=== PATIENT | female | born 1965 | race Caucasian/White ===

== ENCOUNTER 2016-09-02 11:46 | Emergency (ER) | payer BC, MEDICARE ==
[2016-09-02] MEDS ORDERED: CLINDAMYCIN HCL 150 MG CAPSULE PO ONE (12:02)
--- NOTE | 2016-09-02 12:05 | ER Document Report ---
ED Extremity Problem, Lower - General Chief Complaint: Foot Pain Stated Complaint: FOOT/LEG PAIN Time seen by provider: 12:02 Mode of Arrival: Ambulatory Information source: Patient TRAVEL OUTSIDE OF THE [place] IN LAST 30 DAYS: No - HPI Patient complains to provider of: Injury, Pain, Swelling Location: Foot, Great Toe Occurred: Other - 2 weeks ago Where: Home Onset/Duration: Gradual Quality of pain: Achy, Fullness Severity: Moderate Context: Fell Recent injury: Yes Exacerbated by: Movement, Walking Relieved by: Nothing Notes: Patient is a 50-year-old female with a history of myotonic muscular dystrophy, she reports a fall at home proximally 2 weeks ago, stating her knees gave out from the underneath her, and she fell on her buttocks with her feet underneath her, over the past 2 weeks she's been having painful swelling in her left great toe, over the past week it has become slightly erythematous as well, she denies any pain or injury elsewhere, although the pain does radiate up to her knee at times, she denies a fever, no drainage, she does follow up with a chemical technician for history of corns - Related Data Allergies/Adverse Reactions: Sulfa (Sulfonamide Antibiotics) Allergy (Severe, Verified 09/02/16 11:54) Hives latex [Latex] Allergy (Intermediate, Verified 09/02/16 11:54) Generalized Itching Past Medical History - General Information source: Patient - Social History Smoking Status: Never Smoker Family History: Reviewed & Not Pertinent Patient has suicidal ideation: No Patient has homicidal ideation: No - Past Medical History Cardiac Medical History: Reports: Hx Hypertension Pulmonary Medical History: Reports: Hx Bronchitis, Hx Pneumonia Denies: Hx Asthma, Hx COPD, Hx Tuberculosis Renal/ Medical History: Denies: Hx Peritoneal Dialysis Malignancy Medical History: Reports: Hx Brain Cancer Musculoskeltal Medical History: Denies Hx Arthritis Past Surgical History: Reports: Hx Gynecologic Surgery - D&C x2, Hx Hysterectomy , Hx Thyroid Surgery - due to cancer, Hx Tonsillectomy - adenoidectomy. Denies : Hx Pacemaker - Immunizations Hx Diphtheria, Pertussis, Tetanus Vaccination: Yes Review of Systems - Review of Systems Constitutional: No symptoms reported EENT: No symptoms reported Cardiovascular: No symptoms reported Respiratory: No symptoms reported Gastrointestinal: No symptoms reported Genitourinary: No symptoms reported Female Genitourinary: No symptoms reported Musculoskeletal: See HPI Skin: See HPI Hematologic/Lymphatic: No symptoms reported Neurological/Psychological: No symptoms reported -: Yes All other systems reviewed and negative Physical Exam - Vital signs Vitals: Temp Pulse Resp BP Pulse Ox 98.7 F 57 L 16 169/84 H 96 09/02/16 11:54 09/02/16 11:54 09/02/16 11:54 09/02/16 11:54 09/02/16 11:54 Interpretation: Hypertensive, Bradycardic - Notes Notes: - General General appearance: Appears well, Alert In distress: None - HEENT Head: Normocephalic, Atraumatic Eyes: Normal Conjunctiva: Normal Extraocular movements intact: Yes Eyelashes: Normal Pupils: PERRL - Respiratory Respiratory status: No respiratory distress - Cardiovascular Rhythm: Regular - Abdominal Inspection: Normal - Back Back: Normal - Extremities General upper extremity: Normal inspection General lower extremity: Left foot with tenderness, mild swelling and erythema to the great toe, sensation and motor is intact, toenail is yellowish, thick, there is overgrowth of dry thick skin to the medial portion of the foot consistent with corns - Neurological Neuro grossly intact: Yes Orientation: AAOx4 [place] Coma Scale Eye Opening: Spontaneous [place] Coma Scale Verbal: Oriented [place] Coma Scale Motor: Obeys Commands [place] Coma Scale Total: 15 - Psychological Associated symptoms: Normal affect, Normal mood - Skin Skin Temperature: Warm Skin Moisture: Dry Skin Color: Normal Course - Vital Signs Vital signs: Temp Pulse Resp BP Pulse Ox 98.7 F 57 L 16 169/84 H 96 09/02/16 11:56 09/02/16 11:56 09/02/16 11:56 09/02/16 11:56 09/02/16 11:56 - Diagnostic Test Radiology reviewed: Image reviewed, Reports reviewed Procedures - Immobilization Left Foot Time completed: 12:31 Pre-Proc Neuro Vasc Exam: Normal Immobilizer type: Post-op shoe, Other - Leonel taping Performed by: PCT Post-Proc Neuro Vasc Exam: Normal Alignment checked and good: Yes Discharge - Discharge Clinical Impression: Cellulitis of great toe Qualifiers: Laterality: left Qualified Code(s): L03.032 - Cellulitis of left toe Fractured great toe Qualifiers: Encounter type: initial encounter Fracture type: closed Phalanx: distal Fracture alignment: nondisplaced Laterality: left Qualified Code(s): S92.425A - Nondisplaced fracture of distal phalanx of left great toe, initial encounter for closed fracture Condition: Stable Disposition: HOME, SELF-CARE Instructions: Cellulitis ([facility]), Fractured Toe ([facility]) Additional Instructions: Follow up with your primary care provider and chemical technician in one to 2 days. Return to the emergency room immediately if symptoms worsen or any additional concerns. Prescriptions: Clindamycin HCl [Cleocin 150 mg Capsule] 450 mg PO Q6 10 Days Hydrocodone/Acetaminophen [Hydrocodon-Acetaminophen 5-325] 1 each PO Q6 #20 tablet Referrals: MARZENA GUTIERREZ DPM [ACTIVE STAFF] - Follow up as needed
[2016-09-02 12:59] VITALS: BP 150/69
== END 2016-09-02 12:56 | disposition home or self-care (01) ==
LOC: ER 11:46
DX: S92.425A Nondisplaced fracture of distal phalanx of left great toe, initial encounter for closed fracture (principal); W19.XXXA Unspecified fall, initial encounter; Y92.009 Unspecified place in unspecified non-institutional (private) residence as the place of occurrence of the external cause; L03.032 Cellulitis of left toe; G71.11 Myotonic muscular dystrophy; I10 Essential (primary) hypertension; Z88.2 Allergy status to sulfonamides; Z91.040 Latex allergy status; Z85.841 Personal history of malignant neoplasm of brain
CPT/HCPCS: 99283

== ENCOUNTER → 2017-01-06 | Outpatient (CLI) | payer BC, MEDICARE ==
--- NOTE | 2017-01-06 19:45 | EKG REPORT ---
SEVERITY:- ABNORMAL ECG - SINUS RHYTHM FIRST DEGREE AV BLOCK LEFT VENTRICULAR HYPERTROPHY : Confirmed by: Jose Howell MD 06-Jan-2017 19:45:32
== END ==
LOC: OD 10:02
PROVIDERS: ATTEND Family Medicine
DX: T88.7XXS Unspecified adverse effect of drug or medicament, sequela (principal)
CPT/HCPCS: 93005; 93010

== ENCOUNTER → 2017-03-11 | Outpatient (CLI) | payer BC, MEDICARE ==
[2017-03-11 15:51] LABS: FREE T3 3.3 pg/mL (2.77-5.27)
[2017-03-11 16:05] LABS: THYROID STIMULATING HORMONE 0.05 uIU/mL (0.47-4.68)
== END ==
LOC: OD 12:46
PROVIDERS: ATTEND Physician Assistant
DX: E03.9 Hypothyroidism, unspecified (principal)
CPT/HCPCS: 36415; 84439; 84443; 84481

== ENCOUNTER 2017-03-12 19:10 | Emergency (ER) | payer BC, MEDICARE ==
[2017-03-12] MEDS ORDERED: LIDOCAINE 4%/TETRACAINE 0.5%/EPI 0.18% 5 ML TOPICAL SOLN TOP ONE (22:10)
--- NOTE | 2017-03-12 22:12 | ER Document Report ---
ED Fall - General Chief Complaint: Fall Stated Complaint: FALL,HEAD INJURY Time Seen by Provider: 03/12/17 21:38 Mode of Arrival: Wheelchair Information source: Patient Notes: 51-year-old female presents to ED after falling while vacuuming this afternoon. She states she hit her head on a piece of wooden elephant statue causing the ear to break off which caused a lacerations to the posterior scalp. Bleeding was controlled. Patient is not on any blood thinners and denies any loss of consciousness or nausea or vomiting. TRAVEL OUTSIDE OF THE [place] IN LAST 30 DAYS: No - HPI Occurred: This afternoon - 4:30 PM Where: Home, Indoors Context: Tripped Associated symptoms: Difficulty walking - Patient always has difficulty walking due to muscular condition that is chronic not due to fall today Location of injury/pain: Head Quality of pain: Sharp - Large laceration to posterior scalp Severity: Moderate Pain Level: 4 - Related data Allergies/Adverse Reactions: Sulfa (Sulfonamide Antibiotics) Allergy (Severe, Verified 03/12/17 19:18) Hives latex [Latex] Allergy (Intermediate, Verified 03/12/17 19:18) Generalized Itching Past Medical History - General Information source: Patient - Social History Smoking Status: Never Smoker Cigarette use (# per day): No Chew tobacco use (# tins/day): No Smoking Education Provided: No Frequency of alcohol use: None Drug Abuse: None Lives with: Family Family History: Arthritis, CAD, CVA, Hyperlipidemia, Hypertension, Malignancy. denies: COPD, Thyroid Disfunction Patient has suicidal ideation: No Patient has homicidal ideation: No - Past Medical History Cardiac Medical History: Reports: Hx Hypertension Pulmonary Medical History: Reports: Hx Bronchitis, Hx Pneumonia Neurological Medical History: Reports: Other - Cancer in her brain Endocrine Medical History: Reports: Other - Thyroid cancer with removal of thyroid Renal/ Medical History: Reports: None Malignancy Medical History: Reports: Hx Brain Cancer, Hx Skin Cancer, Other - Thyroid cancer GI Medical History: Reports: Hx Colonoscopy, Hx Endoscopy, Other - Colitis Musculoskeltal Medical History: Reports Hx Muscular Dystrophy, Reports Hx Musculoskeletal Deformity, Reports Hx Musculoskeletal Trauma Skin Medical History: Reports None Psychiatric Medical History: Reports: None Traumatic Medical History: Reports: Hx Fractures - Thumb Past Surgical History: Reports: Hx Adenoidectomy, Hx Appendectomy, Hx Cholecystectomy, Hx Dilation and Curettage, Hx Hysterectomy, Hx Orthopedic Surgery - Knee surgery and thumb surgery, Hx Thyroid Surgery - due to cancer, Hx Tonsillectomy, Other - Cyst removed from subcutaneous tissue - Immunizations Immunizations up to date: Yes Hx Diphtheria, Pertussis, Tetanus Vaccination: Yes Review of Systems - Review of Systems Constitutional: No symptoms reported EENT: No symptoms reported Cardiovascular: No symptoms reported Respiratory: No symptoms reported Gastrointestinal: No symptoms reported Genitourinary: No symptoms reported Female Genitourinary: No symptoms reported Musculoskeletal: No symptoms reported Skin: Other - Scalp laceration posterior scalp Hematologic/Lymphatic: No symptoms reported Neurological/Psychological: Headaches Physical Exam - Vital signs Vitals: Temp Pulse Resp BP Pulse Ox 98.2 F 71 20 149/89 H 97 03/12/17 19:18 03/12/17 19:18 03/12/17 19:18 03/12/17 19:18 03/12/17 19:18 Interpretation: Normal - General General appearance: Appears well, Alert - HEENT Head: Normocephalic, Atraumatic Eyes: Normal Pupils: PERRL - Respiratory Respiratory status: No respiratory distress Chest status: Nontender Breath sounds: Normal Chest palpation: Normal - Cardiovascular Rhythm: Regular Heart sounds: Normal auscultation Murmur: No - Abdominal Inspection: Normal Distension: No distension Bowel sounds: Normal Tenderness: Nontender Organomegaly: No organomegaly - Back Back: Normal, Nontender - Extremities General upper extremity: Normal inspection, Nontender, Normal color, Normal ROM , Normal temperature General lower extremity: Normal inspection, Nontender, Normal color, Normal ROM , Normal temperature, Normal weight bearing. No: Atif's sign - Neurological Neuro grossly intact: Yes Cognition: Normal Orientation: AAOx4 [place] Coma Scale Eye Opening: Spontaneous [place] Coma Scale Verbal: Oriented [place] Coma Scale Motor: Obeys Commands [place] Coma Scale Total: 15 Speech: Normal Motor strength normal: LUE, RUE, LLE, RLE Sensory: Normal - Psychological Associated symptoms: Normal affect, Normal mood - Skin Skin Temperature: Warm Skin Moisture: Dry Skin Color: Normal Skin irregularity: Laceration - 5 cm Location of irregularity: Scalp Course - Vital Signs Vital signs: Temp Pulse Resp BP Pulse Ox 98.2 F 76 18 143/82 H 98 03/12/17 19:18 03/12/17 23:41 03/12/17 23:41 03/12/17 23:41 03/12/17 23:41 Procedures - Laceration/Wound Repair left posterior scalp Time completed: 23:04 Wound length (cm): 6 Wound's Depth, Shape: Into muscle, Irregular, Contused tissue Laceration pre-procedure: Sterile PPE donned, Shur-Clens applied Anesthetic type: Other Volume Anesthetic (mLs): 5 Wound explored: No foreign body removed, Contaminated Irrigated w/ Saline (mLs): 400 Wound Repaired With: [place] Number of Sutures: 6 Layer Closure?: No Post-procedure wound care: Other - Bacitracin applied Post-procedure NV exam normal: Yes Complications: No Discharge - Discharge Clinical Impression: Fall Qualifiers: Encounter type: initial encounter Qualified Code(s): W19.XXXA - Unspecified fall, initial encounter Occipital scalp laceration Qualifiers: Encounter type: initial encounter Qualified Code(s): S01.01XA - Laceration without foreign body of scalp, initial encounter Condition: Stable Disposition: HOME, SELF-CARE Additional Instructions: Scalp Laceration A scalp laceration requires little care. Dressings are applied only if severe bleeding or a large flap are present. Usually, once the cut is sutured, you can ignore it. Simply comb the hair over top of it to hide the stitches and go about your usual routine. You can shampoo your hair as needed starting tomorrow. If you need to wear a special hat or protective helmet for work, be careful that it doesn't press on the area. If crusting is bothersome, you can soften the crusts with Polysporin ointment, then shampoo. Infection in a scalp laceration is rare. If any signs of infection occur ( swelling, redness, increasing tenderness, red streaks, tender lumps in the neck on the side of the laceration, or fever), see the doctor immediately. Care of Stapled Wounds Your laceration has been stapled to keep the skin edges aligned during healing. The time of staple removal depends on the nature and location of your cut. Please follow the care instructions the doctor has outlined for you and return for further care, according to the schedule you've been given. A special instrument is needed to remove oscar without injuring your skin further, so don't try to take the oscar out yourself. Keep the wound and dressing clean. Unless you were told otherwise, you may shower daily, blotting the wound dry with a clean, unused towel. At other times, If the dressing gets wet or blood soaked, remove it and blot the wound dry, then reapply a new dressing. Unless you were instructed otherwise, dressings should be changed at least daily. If any signs of infection occur (swelling, redness, increasing tenderness, red streaks, tender lumps in the armpit or groin above the laceration, or fever) , see the doctor immediately. SOAP CLEANSING: Gently wash the wound daily using a mild soap (like Ivory, Phisoderm, Neutrogena). Use warm water, rubbing gently until all debris, ooze, and crusting have been washed from the wound. Allow to dry briefly (about 10 minutes) after cleaning. Repeat this cleansing at least three times a day for the first two days and then once or twice a day. ANTIBIOTIC OINTMENT PROTECTION: Your wounds are such that dressing them is not practical or optional. After cleansing, you should apply a thin coating of antibiotic ointment ( Bacitracin, not Neosporin) to the wounds at least three times daily. This lessens infection risk, and may decrease the amount of scarring. Use a q-tip or dull butter knife, not your finger, to apply this ointment. Any debris or ooze which builds up in the ointment should be gently rubbed off with a sterile gauze pad. Harder crusting may need to be gently scrubbed off with a clean wash cloth with soap and warm water, perhaps applying a warm, wet wash cloth to the wound for ten minutes first. Development of redness, severe itching, or blistering may mean allergy to the ointment. See the doctor. TETANUS IMMUNIZATION GIVEN: You have been given an immunization against tetanus. Please record this in your records. In general, a booster is needed only once every 10 years. The tetanus shot protects against tetanus or "lockjaw," which is a complication of certain wound infections (the tetanus shot cannot protect against the actual infection). The immunization site may become warm and red due to local reaction. If this occurs, apply warm compresses and take aspirin or ibuprofen to reduce inflammation and discomfort. Return for evaluation if the reaction becomes severe. ORAL NARCOTIC MEDICATION: You have been given a prescription for pain control. This medication is a narcotic. It's best taken with food, as nausea can result if taken on an empty stomach. Don't operate machinery or drive within six hours of taking this medication. Do not combine this medicine with alcohol, or with any medication which can cause sedation (such as cold tablets or sleeping pills) unless you get permission from the physician. Narcotics tend to cause constipation. If possible, drink plenty of fluids and eat a diet high in fiber and fruits. FOLLOW-UP CARE: Please see your primary doctor in __3___ days for an infection check and dressing change. Your oscar should be removed in __5___ days. To facilitate a timely removal of your oscar, you may return to the Emergency Department at [facility]. You do not need to call for an appointment, but the best time to come in for suture removal is early in the morning. If you have been referred to another physician for follow-up care, call that physicians office for an appointment as you were instructed. If you experience a significant change in your laceration, or if you are concerned there may be an infection (swelling, redness, drainage, increasing tenderness, red streaks, tender lumps in the armpit or groin above the laceration, or fever) , return to the Emergency Department immediately re-evaluation. Forms: Elevated Blood Pressure Referrals: ANDREW ARRIAGA DO [Primary Care Provider] - Follow up as needed
[2017-03-12] MEDS ORDERED: LIDOCAINE 1% INJ-PF (10 MG/ML) 30 ML SDV ONE (22:25)
[2017-03-12] MEDS ORDERED: DIPH/PERTUSS(ACELL)/TETANUS VAC/PF 0.5 ML SYR (>=10YO) IM ONE (23:08)
[2017-03-12 23:42] VITALS: BP 143/82
== END 2017-03-12 23:41 | disposition home or self-care (01) ==
LOC: ER 19:10
PROC: 0HQ0XZZ Repair Scalp Skin, External Approach (ICD-10-PCS; principal; 2017-03-12)
DX: S01.01XA Laceration without foreign body of scalp, initial encounter (principal); W18.09XA Striking against other object with subsequent fall, initial encounter
CPT/HCPCS: 99282; 90471; 90715; 12002; J3490

== ENCOUNTER 2017-03-17 11:48 | Emergency (ER) | payer BC, MEDICARE ==
[2017-03-17 11:54] VITALS: BP 150/82
--- NOTE | 2017-03-17 12:29 | ER Document Report ---
ED Suture/Wound Recheck - General Chief Complaint: Staple Removal Stated Complaint: STAPLE REMOVAL Time Seen by Provider: 03/17/17 12:24 Notes: 51 yo female here for staple removal. 6 oscar placed 5 days ago. TRAVEL OUTSIDE OF THE [place] IN LAST 30 DAYS: No - HPI Context: Injury Symptoms since procedure: No complaints Exacerbated by: Denies Relieved by: Denies - Related Data Allergies/Adverse Reactions: Sulfa (Sulfonamide Antibiotics) Allergy (Severe, Verified 03/17/17 11:53) Hives latex [Latex] Allergy (Intermediate, Verified 03/17/17 11:53) Generalized Itching Past Medical History - General Information source: Patient - Social History Smoking Status: Unknown if Ever Smoked Frequency of alcohol use: None Drug Abuse: None Lives with: Family Family History: Arthritis, CAD, CVA, Hyperlipidemia, Hypertension, Malignancy. denies: COPD, Thyroid Disfunction Patient has suicidal ideation: No Patient has homicidal ideation: No - Past Medical History Cardiac Medical History: Reports: Hx Hypertension Pulmonary Medical History: Reports: Hx Bronchitis, Hx Pneumonia Denies: Hx Asthma, Hx COPD, Hx Tuberculosis Renal/ Medical History: Denies: Hx Peritoneal Dialysis Malignancy Medical History: Reports: Hx Brain Cancer, Hx Skin Cancer GI Medical History: Reports: Hx Colonoscopy, Hx Endoscopy Musculoskeltal Medical History: Denies Hx Arthritis, Reports Hx Muscular Dystrophy, Reports Hx Musculoskeletal Deformity, Reports Hx Musculoskeletal Trauma Traumatic Medical History: Reports: Hx Fractures - Thumb Past Surgical History: Reports: Hx Adenoidectomy, Hx Appendectomy, Hx Cholecystectomy, Hx Dilation and Curettage, Hx Gynecologic Surgery - D&C x2, Hx Hysterectomy, Hx Orthopedic Surgery - Knee surgery and thumb surgery, Hx Thyroid Surgery - due to cancer, Hx Tonsillectomy, Other - Cyst removed from subcutaneous tissue. Denies: Hx Pacemaker - Immunizations Immunizations up to date: Yes Hx Diphtheria, Pertussis, Tetanus Vaccination: Yes Review of Systems - Review of Systems Constitutional: No symptoms reported EENT: No symptoms reported Cardiovascular: No symptoms reported Respiratory: No symptoms reported Gastrointestinal: No symptoms reported Genitourinary: No symptoms reported Female Genitourinary: No symptoms reported Musculoskeletal: No symptoms reported Skin: No symptoms reported Hematologic/Lymphatic: No symptoms reported Neurological/Psychological: No symptoms reported -: Yes All other systems reviewed and negative Physical Exam - Vital signs Vitals: Temp Pulse Resp BP Pulse Ox 98.1 F 74 12 150/82 H 96 03/17/17 11:53 03/17/17 11:53 03/17/17 11:53 03/17/17 11:53 03/17/17 11:53 Interpretation: Normal - General General appearance: Appears well, Alert - HEENT Head: Normocephalic, Atraumatic Eyes: Normal Pupils: PERRL - Respiratory Respiratory status: No respiratory distress Chest status: Nontender Breath sounds: Normal Chest palpation: Normal - Cardiovascular Rhythm: Regular Heart sounds: Normal auscultation Murmur: No - Abdominal Inspection: Normal Distension: No distension Bowel sounds: Normal Tenderness: Nontender Organomegaly: No organomegaly - Back Back: Normal, Nontender - Extremities General upper extremity: Normal inspection, Nontender, Normal color, Normal ROM , Normal temperature General lower extremity: Normal inspection, Nontender, Normal color, Normal ROM , Normal temperature, Normal weight bearing. No: Atif's sign - Neurological Neuro grossly intact: Yes Cognition: Normal Orientation: AAOx4 [place] Coma Scale Eye Opening: Spontaneous [place] Coma Scale Verbal: Oriented [place] Coma Scale Motor: Obeys Commands [place] Coma Scale Total: 15 Speech: Normal Motor strength normal: LUE, RUE, LLE, RLE Sensory: Normal - Psychological Associated symptoms: Normal affect, Normal mood - Skin Skin Temperature: Warm Skin Moisture: Dry Skin Color: Normal Course - Re-evaluation Re-evalutation: 03/17/17 12:27 #6 oscar intact to posterior scalp. edges well approximated. no s/s infection. pt stable for discharge - Vital Signs Vital signs: Temp Pulse Resp BP Pulse Ox 98.1 F 74 12 150/82 H 96 03/17/17 11:53 03/17/17 11:53 03/17/17 11:53 03/17/17 11:53 03/17/17 11:53 Discharge - Discharge Clinical Impression: Removal of oscar Condition: Stable Disposition: HOME, SELF-CARE Instructions: Staple Removal ([facility])
== END 2017-03-17 12:40 | disposition home or self-care (01) ==
LOC: ER 11:48
DX: Z48.02 Encounter for removal of sutures (principal)

== ENCOUNTER 2017-06-01 08:46 | Emergency (ER) | payer BC, MEDICARE ==
--- NOTE | 2017-06-01 10:09 | ER Document Report ---
ED General - General Mode of Arrival: Ambulatory Information source: Patient TRAVEL OUTSIDE OF THE [place] IN LAST 30 DAYS: No - General Chief Complaint: Flu Symptoms Stated Complaint: COUGH Time Seen by Provider: 06/01/17 10:05 Notes: Patient is a 51 year old female presenting to the emergency department complaining of multiple symptoms including cough with various colors of sputum, nausea, cough tussive vomiting, congestion and shortness of breath onset 14 days ago. Patient states she saw her primary care doctor and was prescribed Prednisone, antibiotics and told to take Robitussin. (RITA GANT) - Related Data Allergies/Adverse Reactions: Sulfa (Sulfonamide Antibiotics) Allergy (Severe, Verified 06/01/17 08:49) Hives latex [Latex] Allergy (Intermediate, Verified 06/01/17 08:49) Generalized Itching Past Medical History - General Information source: Patient - Social History Smoking Status: Never Smoker Chew tobacco use (# tins/day): No Frequency of alcohol use: None Drug Abuse: None Family History: Arthritis, CAD, CVA, Hyperlipidemia, Hypertension, Malignancy Patient has suicidal ideation: No Patient has homicidal ideation: No - Past Medical History Cardiac Medical History: Reports: Hx Hypertension Pulmonary Medical History: Reports: Hx Bronchitis, Hx Pneumonia Malignancy Medical History: Reports: Hx Brain Cancer, Hx Skin Cancer GI Medical History: Reports: Hx Colonoscopy, Hx Endoscopy Musculoskeltal Medical History: Reports Hx Muscular Dystrophy, Reports Hx Musculoskeletal Deformity, Reports Hx Musculoskeletal Trauma Traumatic Medical History: Reports: Hx Fractures - Thumb Past Surgical History: Reports: Hx Adenoidectomy, Hx Appendectomy, Hx Cholecystectomy, Hx Dilation and Curettage, Hx Gynecologic Surgery - D&C x2, Hx Hysterectomy, Hx Orthopedic Surgery - Knee surgery and thumb surgery, Hx Thyroid Surgery - due to cancer, Hx Tonsillectomy, Other - Cyst removed from subcutaneous tissue - Immunizations Immunizations up to date: Yes Hx Diphtheria, Pertussis, Tetanus Vaccination: Yes Review of Systems - Review of Systems Constitutional: See HPI, Fever Cardiovascular: No symptoms reported Respiratory: See HPI, Cough, Short of breath Gastrointestinal: See HPI, Abdominal pain, Nausea, Vomiting Genitourinary: No symptoms reported Female Genitourinary: No symptoms reported Musculoskeletal: No symptoms reported Skin: No symptoms reported Hematologic/Lymphatic: No symptoms reported Neurological/Psychological: No symptoms reported -: Yes All other systems reviewed and negative Physical Exam - Vital signs Vitals: Temp Pulse Resp BP Pulse Ox 97.8 F 62 18 148/79 H 100 06/01/17 08:55 06/01/17 08:55 06/01/17 08:55 06/01/17 08:55 06/01/17 08:55 - Notes Notes: GENERAL: Alert, interacts well. No acute distress. HEAD: Normocephalic, atraumatic. EYES: Pupils equal, round, and reactive to light. Extraocular movements intact. ENT: Oral mucosa moist, tongue midline. NECK: Full range of motion. Supple. Trachea midline. LUNGS: Expiratory wheezes. No respiratory distress. HEART: Regular rate and rhythm. No murmurs, gallops, or rubs. EXTREMITIES: Moves all 4 extremities spontaneously. NEUROLOGICAL: Alert and oriented x3. Normal speech. PSYCH: Normal affect, normal mood. SKIN: Warm, dry, normal turgor. No rashes or lesions noted. (RITA GANT) Course - Re-evaluation Re-evalutation: 06/01/17 10:41 Patient well-appearing not tachypnea or hypoxic. Chest x-ray by my interpretation does show mild bilateral interstitial infiltrates versus prominent pulmonary markings. Will change patient's antibiotics to Levaquin and will also provide albuterol puffer and cough syrup with follow-up with her primary care physician in the next 72 hours for reevaluation. I did discuss return precautions with patient. (LIAM GAN) - Vital Signs Vital signs: Temp Pulse Resp BP Pulse Ox 97.8 F 64 20 104/77 95 06/01/17 11:13 06/01/17 11:13 06/01/17 11:13 06/01/17 11:13 06/01/17 11:13 Discharge - Discharge Clinical Impression: Cough, Chest congestion Condition: Good Disposition: HOME, SELF-CARE Additional Instructions: 1)Discontinue your current antibiotic regimen and start the ones provided today. 2)Follow-up with primary care physician in the next 2-3 days for reevaluation or sooner in the emergency department if symptoms are worsening 3)Please use albuterol puffer provided 2 puffs every 4 hours for the next 2 days while awake and then 2 puffs every 4 hours as needed thereafter Prescriptions: Guaifenesin/Dextromethorphan [Cough Syrup] 118 ml PO QHS #1 bottle Guaifenesin/Dextromethorphan [Mucinex Dm ER 600-30 mg Tablet] 1 each PO ASDIR PRN #30 tab.er.12h PRN Reason: Levofloxacin [Levaquin 750 mg Tablet] 750 mg PO DAILY #5 tablet Referrals: ANDREW ARRIAGA DO [Primary Care Provider] - Follow up as needed Scribe Attestation: 06/02/17 23:07 I personally performed the services described documentation, reviewed and edited the documentation which was dictated to describe my presence, and it accurately records my words and actions. (LIAM GAN) Scribe Documentation - Scribe Written by Ravie:: Daniel Mosley, 06/01/2017 10:16 acting as scribe for :: Jorge
--- NOTE | 2017-06-01 10:28 | RADIOLOGY REPORT (SQ) ---
EXAM DESCRIPTION: CHEST PA/LAT COMPLETED DATE/TIME: 06/01/2017 10:16 am REASON FOR STUDY: cough, congestion COMPARISON: June 2013 EXAM PARAMETERS: NUMBER OF VIEWS: two views TECHNIQUE: Digital Frontal and Lateral radiographic views of the chest acquired. RADIATION DOSE: NA LIMITATIONS: none FINDINGS: LUNGS AND PLEURA: No opacities, masses or pneumothorax. No pleural effusion. MEDIASTINUM AND HILAR STRUCTURES: No masses or contour abnormalities. HEART AND VASCULAR STRUCTURES: Heart normal size. No evidence for failure. BONES: No acute findings. HARDWARE: None in the chest. OTHER: No other significant finding. IMPRESSION: NO SIGNIFICANT RADIOGRAPHIC FINDING IN THE CHEST. TECHNICAL DOCUMENTATION: JOB ID: [id number] [employer]- All Rights Reserved
[2017-06-01] MEDS ORDERED: ALBUTEROL SULFATE HFA (90 MCG/PUFF) 200 PUFF/8.5 GM MDI IH ONE (10:47)
[2017-06-01 11:16] VITALS: BP 104/77
== END 2017-06-01 11:16 | disposition home or self-care (01) ==
LOC: ER 08:46
DX: R05 Cough (principal); R09.89 Other specified symptoms and signs involving the circulatory and respiratory systems; R11.2 Nausea with vomiting, unspecified; R09.81 Nasal congestion; R06.02 Shortness of breath
CPT/HCPCS: 99283; 71046; J3490

== ENCOUNTER → 2017-12-10 | Outpatient (CLI) | payer BC, MEDICARE ==
--- NOTE | 2017-12-10 15:42 | WOMENS IMAGING REPORT ---
EXAM DESCRIPTION: BILAT SCREENING MAMMO W/CAD COMPLETED DATE/TIME: 12/10/2017 2:47 pm REASON FOR STUDY: BILATERAL SCREENING MAMMO/Z12.31 Z12.31 ENCNTR SCREEN MAMMOGRAM FOR MALIGNANT COOKIE PLASM OF JULIET COMPARISON: 11/26/2009 and 12/07/2008. TECHNIQUE: Standard craniocaudal and mediolateral oblique views of each breast recorded using digita l acquisition. LIMITATIONS: None. FINDINGS: No masses, calcifications or architectural distortion. No areas of suspicion. Read with the assistance of CAD. .[facility] - R2 Cenova Version 1.3 .[facility] - R2 Cenova Version 1.3 .[facility] - R2 Cenova Version 2.4 .[facility] - R2 Cenova Version 2.4 .[facility] - R2 Managed Care Director Version 9.2 IMPRESSION: NORMAL MAMMOGRAM. BIRADS 1. BREAST DENSITY: b. There are scattered areas of fibroglandular density. BIRAD: 1 NEGATIVE RECOMMENDATION: ROUTINE SCREENING COMMENT: The patient has been notified of the results by letter per MQSA requirements. Additional no tification policies are in place for contacting patient with suspicious or incomplete findings. Quality ID #[id number]: The [employer] recommends an annual screening mammogram for women aged 40 years or over. This facility utilizes a reminder system to ensure that all patients receive reminder letters, and/or direct phone calls for appointments. This includes reminders for routine scr eening mammograms, diagnostic mammograms, or other Breast Imaging Interventions when appropriate. Th is patient will be placed in the appropriate reminder system. The [employer] (ACR) has developed recommendations for screening MRI of the breast s in certain patient populations, to be used in conjunction with mammography. Breast MRI surveillanc e may be appropriate for women with more than 20% lifetime risk of developing breast cancer as deter mined by genetic testing, significant family history of the disease, or history of mantle radiation f or Hodgkins Disease. ACR Practice Guidelines 2008. TECHNICAL DOCUMENTATION: FINDING NUMBER: (1) ASSESSMENT: (1) JOB ID: [id number] [employer]- All Rights Reserved Reading location - IP/workstation name: [email or web address]
== END ==
LOC: WI 14:01
PROVIDERS: ATTEND Family Medicine
DX: Z12.31 Encounter for screening mammogram for malignant neoplasm of breast (principal)
CPT/HCPCS: 77067

== ENCOUNTER 2019-01-28 13:16 | Inpatient (IN) | payer BC, MEDICARE ==
[2019-01-28] MEDS ORDERED: ONDANSETRON HCL INJ/PF 4 MG/2 ML SDV IV ONE (13:51)
[2019-01-28] MEDS ORDERED: IPRATROPIUM/ALBUTEROL 0.5-2.5 MG/3 ML AMPUL NEB ONE (13:51)
--- NOTE | 2019-01-28 13:52 | ER Document Report ---
ED Medical Screen (RME) - General Chief Complaint: Cough Stated Complaint: COUGH Time Seen by Provider: 01/28/19 13:44 Primary Care Provider: ANDREW ARRIAGA DO [Primary Care Provider] - Follow up as needed Information source: Patient Notes: Patient presents complaining of cough for the past week. Patient denies any fever. Patient reports cough is occasionally productive. Patient also com plains of right-sided abdominal pain with nausea and vomiting x3 episodes today. Patient denies any urinary symptoms. hx: Muscular dystrophy, skin cancer, cholecystectomy, appendectomy, thyroid surgery, brain tumor removed, partial hysterectomy I have greeted and performed a rapid initial assessment of this patient. A comprehensive ED assessment and evaluation of the patient, analysis of test r esults and completion of the medical decision making process will be conducted by additional ED providers. TRAVEL OUTSIDE OF THE [place] IN LAST 30 DAYS: No - Related Data Allergies/Adverse Reactions: Sulfa (Sulfonamide Antibiotics) Allergy (Severe, Verified 01/28/19 13:44) Hives latex [Latex] Allergy (Intermediate, Verified 01/28/19 13:44) Generalized Itching Past Medical History - Past Medical History Cardiac Medical History: Reports: Hx Hypertension Pulmonary Medical History: Reports: Hx Bronchitis, Hx Pneumonia Denies: Hx Asthma, Hx COPD, Hx Tuberculosis Renal/ Medical History: Denies: Hx Peritoneal Dialysis Malignancy Medical History: Reports: Hx Brain Cancer, Hx Skin Cancer GI Medical History: Reports: Hx Colonoscopy, Hx Endoscopy Musculoskeltal Medical History: Denies Hx Arthritis, Reports Hx Muscular Dystrophy, Reports Hx Musculoskeletal Deformity, Reports Hx Musculoskeletal Trauma Traumatic Medical History: Reports: Hx Fractures - Thumb Past Surgical History: Reports: Hx Adenoidectomy, Hx Appendectomy, Hx Cholecystectomy, Hx Dilation and Curettage, Hx Gynecologic Surgery - D&C x2, Hx Hysterectomy, Hx Orthopedic Surgery - Knee surgery and thumb surgery, Hx Thyroid Surgery - due to cancer, Hx Tonsillectomy, Other - Cyst removed from subcutaneous tissue. Denies: Hx Pacemaker - Immunizations Immunizations up to date: Yes Hx Diphtheria, Pertussis, Tetanus Vaccination: Yes History of Influenza Vaccine for 01/2017 - 07/2017 Season: Yes Physical Exam - Vital signs Vitals: Temp Pulse Resp BP Pulse Ox 98.7 F 59 L 18 142/75 H 94 01/28/19 13:39 01/28/19 13:39 01/28/19 13:39 01/28/19 13:39 01/28/19 13:39 - Respiratory Respiratory status: No respiratory distress Breath sounds: Nonproductive cough, Rhonchi Course - Vital Signs Vital signs: Temp Pulse Resp BP Pulse Ox 98.7 F 59 L 18 142/75 H 94 01/28/19 13:39 01/28/19 13:39 01/28/19 13:39 01/28/19 13:39 01/28/19 13:39 Doctor's Discharge - Discharge Referrals: ANDREW ARRIAGA DO [Primary Care Provider] - Follow up as needed
--- NOTE | 2019-01-28 14:19 | RADIOLOGY REPORT (SQ) ---
EXAM DESCRIPTION: CHEST 2 VIEWS COMPLETED DATE/TIME: 01/28/2019 2:08 pm REASON FOR STUDY: cough COMPARISON: 06/01/2017 EXAM PARAMETERS: NUMBER OF VIEWS: two views TECHNIQUE: Digital Frontal and Lateral radiographic views of the chest acquired. RADIATION DOSE: NA LIMITATIONS: none FINDINGS: LUNGS AND PLEURA: Low lung volumes. Bibasilar opacities. MEDIASTINUM AND HILAR STRUCTURES: No masses or contour abnormalities. HEART AND VASCULAR STRUCTURES: Heart normal size. No evidence for failure. BONES: No acute findings. HARDWARE: None in the chest. OTHER: No other significant finding. IMPRESSION: Low lung volumes with bibasilar opacities. TECHNICAL DOCUMENTATION: JOB ID: [id number] [employer]- All Rights Reserved Reading location - IP/workstation name: [email or web address]
[2019-01-28 15:14] LABS: ABSOLUTE BASOPHILS # (AUTO) 0.1 10^3/uL (0.0-0.2); ABSOLUTE EOSINOPHILS # (AUTO) 0.3 10^3/uL (0.0-0.6); ABSOLUTE LYMPHOCYTES (AUTO) 2.1 10^3/uL (0.5-4.7); ABSOLUTE MONOCYTES (AUTO) 0.6 10^3/uL (0.1-1.4); ABSOLUTE NEUT (AUTO) 7.2 10^3/uL (1.7-8.2); APPEARANCE,URINE SLIGHTLY-CLOUDY; BASOPHILS % (AUTO) 1.3 % (0-2); BILIRUBIN,URINE NEGATIVE (NEGATIVE); COLOR,URINE YELLOW; GLUCOSE, URINE NEGATIVE (NEGATIVE); HEMOGLOBIN 15.3 g/dL (12.0-15.5); KETONES,URINE NEGATIVE (NEGATIVE); LEUKOCYTE ESTERASE,URINE NEGATIVE (NEGATIVE); LYMPHOCYTES % (AUTO) 20.5 % (13-45); MEAN CORPUSCULAR HEMOGLOBIN 29.8 pg (27.0-33.4); MEAN CORPUSCULAR HGB CONC 33.3 g/dL (32.0-36.0); MEAN CORPUSCULAR VOLUME 89 fl (80-97); MONOCYTES % (AUTO) 5.7 % (3-13); NITRITE,URINE NEGATIVE (NEGATIVE); PLATELET COUNT 257 10^3/uL (150-450); PROTEIN,URINE NEGATIVE (NEGATIVE); RED BLOOD COUNT 5.14 10^6/uL (3.72-5.28); RED CELL DISTRIBUTION WIDTH 14.8 % (11.5-14.0); SEGMENTED NEUTROPHILS % (AUTO) 69.5 % (42-78); TOTAL CELLS COUNTED % (AUTO) 100 %; URINE SPECIFIC GRAVITY 1.008; UROBILINOGEN,URINE NEGATIVE mg/dL (<2.0); WHITE BLOOD COUNT 10.3 10^3/uL (4.0-10.5)
[2019-01-28 15:38] LABS: ALBUMIN 4.3 g/dL (3.5-5.0); ALKALINE PHOSPHATASE 404 U/L (38-126); ANION GAP 9 (5-19); ASPARTATE AMINO TRANSFERASE 130 U/L (14-36); BILIRUBIN,DIRECT 0.3 mg/dL (0.0-0.4); BILIRUBIN,TOTAL 1.5 mg/dL (0.2-1.3); BLOOD UREA NITROGEN 6 mg/dL (7-20); CALCIUM 10.5 mg/dL (8.4-10.2); CARBON DIOXIDE 32 mmol/L (22-30); CHLORIDE 100 mmol/L (98-107); GLUCOSE 110 mg/dL (75-110); POTASSIUM 4.6 mmol/L (3.6-5.0); TOTAL PROTEIN 7.3 g/dL (6.3-8.2)
--- NOTE | 2019-01-28 15:44 | ER Document Report ---
ED Respiratory Problem - General Chief Complaint: Cough Stated Complaint: COUGH Time Seen by Provider: 01/28/19 13:44 Primary Care Provider: ANDREW ARRIAGA DO [Primary Care Provider] - Follow up as needed Notes: RME NOTE: Patient presents complaining of cough for the past week. Patient denies any fever. Patient reports cough is occasionally productive. Patient also complains of right-sided abdominal pain with nausea and vomiting x3 episodes today. Patient denies any urinary symptoms. hx: Muscular dystrophy, skin cancer, cholecystectomy, appendectomy, thyroid surgery, brain tumor removed, partial hysterectomy My HPI: Upon initial arrival to the emergency department around 1330 patient's oxygen saturation was noted to be 94%. She was initially treated by E provider. Upon my assessment I have asked for repeat pulse oxygenation as patient does appear tachypneic and can only speak in short worded sentences without getting dyspneic. Patient's oxygen saturation was noted to be 80% at that time. Patie nt's nailbeds were blue. Oxygen was placed by direct order via nursing staff. Discussed this with charge nurse, Cat, will move the patient's to the main emergency department for continuous cardiac monitoring. Patient denies hospital admissions in the last 3 months. States she was at an urgent care in [place] this morning. States they told her she had a pneumonia and she should present to the emergency room. Patient's denying any abdominal pain to myself. TRAVEL OUTSIDE OF THE [place] IN LAST 30 DAYS: No - Related Data Allergies/Adverse Reactions: Sulfa (Sulfonamide Antibiotics) Allergy (Severe, Verified 01/28/19 13:44) Hives latex [Latex] Allergy (Intermediate, Verified 01/28/19 13:44) Generalized Itching Past Medical History - General Information source: Patient - Social History Smoking Status: Never Smoker Frequency of alcohol use: None Drug Abuse: None Family History: Arthritis, CAD, CVA, Hyperlipidemia, Hypertension, Malignancy Patient has suicidal ideation: No Patient has homicidal ideation: No - Past Medical History Cardiac Medical History: Reports: Hx Hypertension Pulmonary Medical History: Reports: Hx Bronchitis, Hx Pneumonia Denies: Hx Asthma, Hx COPD, Hx Tuberculosis Renal/ Medical History: Denies: Hx Peritoneal Dialysis Malignancy Medical History: Reports: Hx Brain Cancer, Hx Skin Cancer GI Medical History: Reports: Hx Colonoscopy, Hx Endoscopy Musculoskeletal Medical History: Denies Hx Arthritis, Reports Hx Muscular Dystrophy, Reports Hx Musculoskeletal Deformity, Reports Hx Musculoskeletal T rauma Traumatic Medical History: Reports: Hx Fractures - Thumb Past Surgical History: Reports: Hx Adenoidectomy, Hx Appendectomy, Hx Cholecystectomy, Hx Dilation and Curettage, Hx Gynecologic Surgery - D&C x2, Hx Hysterectomy, Hx Orthopedic Surgery - Knee surgery and thumb surgery, Hx Thyroid Surgery - due to cancer, Hx Tonsillectomy, Other - Cyst removed from subcutaneous tissue. Denies: Hx Pacemaker - Immunizations Immunizations up to date: Yes Hx Diphtheria, Pertussis, Tetanus Vaccination: Yes Review of Systems - Review of Systems Constitutional: denies: Fever EENT: See HPI Cardiovascular: See HPI Respiratory: See HPI Gastrointestinal: No symptoms reported Genitourinary: No symptoms reported Female Genitourinary: No symptoms reported Musculoskeletal: No symptoms reported Skin: No symptoms reported Hematologic/Lymphatic: No symptoms reported Neurological/Psychological: No symptoms reported Physical Exam - Vital signs Vitals: Temp Pulse Resp BP Pulse Ox 98.7 F 59 L 18 142/75 H 94 01/28/19 13:39 01/28/19 13:39 01/28/19 13:39 01/28/19 13:39 01/28/19 13:39 - Notes Notes: GENERAL: Alert, interacts well. general tachypnea noted HEAD: Normocephalic, atraumatic. EYES: Pupils equal, round, and reactive to light. Extraocular movements intact. ENT: Oral mucosa moist, tongue midline. NECK: Full range of motion. Supple. Trachea midline. LUNGS: Diminished to auscultation apices, no discernible wheezes, rhonchi heard bilateral bases. HEART: Regular rate and rhythm. No murmur ABDOMEN: Soft, non-tender. Non-distended. Bowel sounds present in all 4 quadrants. EXTREMITIES: Moves all 4 extremities spontaneously. No edema, normal radial and dorsalis pedis pulses bilaterally. No cyanosis. BACK: no cervical, thoracic, lumbar midline tenderness. No saddle anesthesia, normal distal neurovascular exam. NEUROLOGICAL: Alert and oriented x3. Normal speech. cranial nerves II through XII grossly intact PSYCH: Normal affect, normal mood. SKIN: cool, dry, normal turgor. No rashes or lesions noted. Course - Re-evaluation Re-evalutation: 01/28/19 15:45 Upon my initial assessment it does appear that patient is tachypneic and hypoxic. Patient placed on oxygen and transferred to the main emergency department for continuous cardiac monitoring. Patient has not been admitted into the hospital in the last 3 months. Did start ceftriaxone and azithromycin. Upon repeat evaluation patient's oxygen saturation noted to be 98% on 4 L/min. Patient placed on 2 L/min via nasal cannula. Patient's oxygen saturation stays around 95%. Patient voices breathing treatment given to her in the emergency department did not help. States she feels "so much better" now on oxygen. 01/28/19 16:28 I discussed this case with Dr. Mann. He states he will come to the emergency department to evaluate the patient at bedside. - Vital Signs Vital signs: Temp Pulse Resp BP Pulse Ox 98.7 F 59 L 18 142/75 H 89 L 01/28/19 13:39 01/28/19 13:39 01/28/19 13:39 01/28/19 13:39 01/28/19 17:00 - Laboratory Result Diagrams: 01/28/19 14:50 01/28/19 14:50 Laboratory results interpreted by me: 01/28/19 01/28/19 01/28/19 14:50 14:50 14:50 RDW 14.8 H Carbon Dioxide 32 H BUN 6 L Creatinine 0.38 L Calcium 10.5 H Total Bilirubin 1.5 H AST 130 H Alkaline Phosphatase 404 H Urine Ascorbic Acid 40 H Discharge - Discharge Clinical Impression: Hypoxia Community acquired pneumonia Qualifiers: Laterality: unspecified laterality Qualified Code(s): J18.9 - Pneumonia, unspecified organism Condition: Fair Disposition: ADMITTED INPATIENT Admitting Provider: Mackenzie (Hospitalist) Unit Admitted: Telemetry Referrals: ANDREW ARRIAGA DO [Primary Care Provider] - Follow up as needed
[2019-01-28] MEDS ORDERED: CEFTRIAXONE 1 GM/D5W RTU 1 GM/50 ML RTUPB IV ONE (15:49)
[2019-01-28] MEDS ORDERED: AZITHROMYCIN INJ 500 MG VIAL IV ONE (15:50)
[2019-01-28] MEDS ORDERED: IPRATROPIUM/ALBUTEROL 0.5-2.5 MG/3 ML AMPUL NEB PRN (17:06)
[2019-01-28] MEDS ORDERED: ACETAMINOPHEN 325 MG TABLET PO PRN (17:06)
--- NOTE | 2019-01-28 17:20 | PDOC H&P ---
History of Present Illness Admission Date/PCP: ANDREW ARRIAGA DO History of Present Illness: JESUS GEORGE is a 53 year old female with a history of muscular dystrophy and thyroid cancer status post thyroidectomy on chronic hormone replacement who presented to an urgent care center with a one-week history of cough. She denies fever. The cough has been productive but her cough is not very strong. She denies shortness of breath. Apparently did a chest x-ray at the urgent care [facility] and sent her over to the ER telling her they thought she had a pneumonia. The chest x-ray here shows possible bibasilar infiltrates. She was not visibly short of breath but at one point they checked her oxygen on room air and it was in the 80s. They put her on oxygen per nasal cannula. She says she was diagnosed with muscular dystrophy 12 or 13 years ago but has never had a pneumonia vaccine nor has she ever seen a school manager. We are admitting her because of her community-acquired pneumonia complicated by her perceived pulmonary weakness due to her muscular dystrophy. Past Medical History Cardiac Medical History: Reports: Hypertension Pulmonary Medical History: Reports: Bronchitis, Pneumonia Denies: Asthma, Chronic Obstructive Pulmonary Disease (COPD), Tuberculosis Malignancy Medical History: Reports: Brain Cancer, Skin Cancer Musculoskeltal Medical History: Denies: Arthritis Hematology: Denies: Anemia Past Surgical History Past Surgical History: Reports: Adenoidectomy, Appendectomy, Cholecystectomy, Hysterectomy, Orthopedic Surgery - Knee surgery and thumb surgery, Tonsillectomy, Other - Cyst removed from subcutaneous tissue Denies: Pacemaker Social History Smoking Status: Never Smoker Frequency of Alcohol Use: None Hx Recreational Drug Use: No Hx Prescription Drug Abuse: No Family History Family History: Arthritis, CAD, CVA, Hyperlipidemia, Hypertension, Malignancy Parental Family History Reviewed: Yes Children Family History Reviewed: Yes Sibling(s) Family History Reviewed.: Yes Medication/Allergy Home Medications: Hydrochlorothiazide 12.5 mg PO DAILY 07/16/11 Losartan Potassium 50 mg PO DAILY 07/16/11 Esomeprazole Magnesium [Nexium] 40 mg PO QPM 02/13/13 Levothyroxine Sodium [Synthroid 0.025 mg Tablet] 0.5 mcg PO DAILY 02/13/13 Multivitamin [Multi-Vitamin Daily] 1 each PO QPM 02/13/13 [place]-3S/Dha/Epa/Fish Oil/D3 [Fish Oil-Vit D3 Softgel] 1,200 intlu PO DAILY 02/13/13 Vitamin B Complex [B Complex] 1 each PO DAILY 02/13/13 Oxycodone HCl/Acetaminophen [Percocet 5-325 mg Tablet] 1 tab PO Q4HP PRN #30 tablet 06/12/13 Hydrocodone/Acetaminophen [[place] 5-325 mg Tablet] 1 tab PO QID #15 tablet 11/18/13 Nitrofurantoin/Nitrofuran Mac [Macrobid 100 mg Capsule] 100 mg PO BID #10 capsule 09/21/14 Oxycodone HCl [Oxycodone HCl 10 MG Tablet] 1 - 2 tab PO Q6H PRN #15 tablet 09/21/14 Clindamycin HCl [Cleocin 150 mg Capsule] 450 mg PO Q6 10 Days capsule 09/02/16 Hydrocodone/Acetaminophen [Hydrocodon-Acetaminophen 5-325] 1 each PO Q6 #20 tablet 09/02/16 Guaifenesin/Dextromethorphan [Cough Syrup] 118 ml PO QHS #1 bottle 06/01/17 Guaifenesin/Dextromethorphan [Mucinex Dm ER 600-30 mg Tablet] 1 each PO ASDIR PRN #30 tab.er.12h 06/01/17 Levofloxacin [Levaquin 750 mg Tablet] 750 mg PO DAILY #5 tablet 06/01/17 Allergies/Adverse Reactions: Sulfa (Sulfonamide Antibiotics) Allergy (Severe, Verified 01/28/19 13:44) Hives latex [Latex] Allergy (Intermediate, Verified 01/28/19 13:44) Generalized Itching Review of Systems All systems: reviewed and no additional remarkable complaints except as stated - All systems were reviewed and were negative except as noted in the HPI Physical Exam Vital Signs: Temp Pulse Resp BP Pulse Ox 98.7 F 59 L 18 142/75 H 89 L 01/28/19 13:39 01/28/19 13:39 01/28/19 13:39 01/28/19 13:39 01/28/19 17:00 Intake & Output 01/27/19 01/28/19 01/29/19 06:59 06:59 06:59 Weight 87.1 kg General appearance: PRESENT: no acute distress, cooperative, disheveled, obese Head exam: PRESENT: atraumatic, normocephalic Eye exam: PRESENT: EOMI, PERRLA. ABSENT: conjunctival injection, nystagmus, scleral icterus Ear exam: PRESENT: normal external ear exam Mouth exam: PRESENT: moist, neck supple Teeth exam: PRESENT: poor dentation Throat exam: ABSENT: post pharyngeal erythema Neck exam: PRESENT: full ROM. ABSENT: carotid bruit, JVD, lymphadenopathy, meningismus, tenderness, thyromegaly Respiratory exam: PRESENT: clear to auscultation yao - Breath sounds were coa rse, symmetrical, unlabored. ABSENT: accessory muscle use, chest wall tenderness, crackles, prolonged expiratory phas, rhonchi, tachypnea, wheezes Cardiovascular exam: PRESENT: RRR - She does get tachycardic when she coughs, +S1, +S2 Pulses: ABSENT: normal carotid pulses Vascular exam: ABSENT: normal capillary refill GI/Abdominal exam: PRESENT: normal bowel sounds, soft. ABSENT: distended, guard ing, rebound, tenderness Extremities exam: ABSENT: clubbing, pedal edema Musculoskeletal exam: PRESENT: normal inspection. ABSENT: deformity Neurological exam: PRESENT: alert, awake, oriented to person, oriented to place, oriented to time, oriented to situation, CN II-XII grossly intact. ABSENT: motor sensory deficit - Her speech was not slurred but it was a little bit dysarthric which she says is chronic for her from her muscular dystrophy Psychiatric exam: PRESENT: appropriate affect, normal mood Skin exam: PRESENT: dry, warm Results Laboratory Results: 01/28/19 14:50 01/28/19 14:50 01/28/19 01/28/19 01/28/19 14:50 14:50 14:50 WBC 10.3 RBC 5.14 Hgb 15.3 Hct 46.0 MCV 89 MCH 29.8 MCHC 33.3 RDW 14.8 H Plt Count 257 Seg Neutrophils % 69.5 Sodium 141.3 Potassium 4.6 Chloride 100 Carbon Dioxide 32 H Anion Gap 9 BUN 6 L Creatinine 0.38 L Est GFR ( Amer) > 60 Glucose 110 Calcium 10.5 H Total Bilirubin 1.5 H AST 130 H Alkaline Phosphatase 404 H Total Protein 7.3 Albumin 4.3 Lipase 27.9 Urine Color YELLOW Urine Appearance SLIGHTLY-CLOUDY Urine pH 5.0 Ur Specific [place] 1.008 Urine Protein NEGATIVE Urine Glucose (UA) NEGATIVE Urine Ketones NEGATIVE Urine Blood NEGATIVE Urine Nitrite NEGATIVE Ur Leukocyte Esterase NEGATIVE Urine WBC (Auto) 1 Urine RBC (Auto) 0 Impressions: Chest X-Ray 01/28/19 13:50 IMPRESSION: Low lung volumes with bibasilar opacities. Assessment and Plan - Diagnosis (1) Community acquired pneumonia Qualifiers: Laterality: unspecified laterality Qualified Code(s): J18.9 - Pneumonia, unspecified organism Is this a current diagnosis for this admission?: Yes Plan: The pneumonia is bibasilar. She is on Rocephin and Zithromax. Blood cultures are pending. Aggressive pulmonary toilet. (2) Hypoxia Is this a current diagnosis for this admission?: Yes Plan: I suspect that were it not for her muscular dystrophy that this would not be much of an issue. I think she has a little bit of baseline respiratory muscle weakness. Her cough is not very strong. We will give her some Mucinex and recommend aggressive pulmonary toilet. We will make sure that she has nebulizer treatments if needed. (3) History of muscular dystrophy Is this a current diagnosis for this admission?: Yes Plan: We will make sure that she gets a pneumonia vaccine prior to discharge. Also recommended that when she is over this, she should get a flu shot. We will try to arrange for her to have follow-up with a school manager as an outpatient. - Time Time Spent with patient: 35 or more minutes - Inpatient Certification Based on my medical assessment, after consideration of the patient's c omorbidities, presenting symptoms, or acuity I expect that the services needed warrant INPATIENT care.: Yes I certify that my determination is in accordance with my understanding of Medicare's requirements for reasonable and necessary INPATIENT services [42 CFR 412.3e].: Yes Medical Necessity: Significant Comorbidiites Make Outpatient Treatment Too Risky, Need Close Monitoring Due to Risk of Patient Decompensation, Need For Continuous Telemetry Monitoring, Need for IV Antibiotics
[2019-01-28] MEDS: GUAIFENESIN SYRP 200 MG/10 ML UDC PO PRN (20:57)
[2019-01-28] MEDS: GUAIFENESIN 600 MG TABLET.SA PO SCH (21:16)
[2019-01-28] MEDS: HEPARIN SOD (PORCINE) 5,000 UNIT/ML 1 ML VIAL SUBCUT SCH (21:17)
[2019-01-29 05:05] LABS: HEMATOCRIT 43.7 % (36.0-47.0); HEMOGLOBIN 14.2 g/dL (12.0-15.5); MEAN CORPUSCULAR HEMOGLOBIN 29.5 pg (27.0-33.4); MEAN CORPUSCULAR HGB CONC 32.4 g/dL (32.0-36.0); MEAN CORPUSCULAR VOLUME 91 fl (80-97); PLATELET COUNT 194 10^3/uL (150-450); RED CELL DISTRIBUTION WIDTH 14.5 % (11.5-14.0); WHITE BLOOD COUNT 8.8 10^3/uL (4.0-10.5)
[2019-01-29 05:35] LABS: ANION GAP 7 (5-19); BLOOD UREA NITROGEN 8 mg/dL (7-20); CALCIUM 10.1 mg/dL (8.4-10.2); CARBON DIOXIDE 35 mmol/L (22-30); CHLORIDE 100 mmol/L (98-107); GLUCOSE 138 mg/dL (75-110); POTASSIUM 4.3 mmol/L (3.6-5.0)
[2019-01-29] MEDS: HEPARIN SOD (PORCINE) 5,000 UNIT/ML 1 ML VIAL SUBCUT SCH ×3 (05:45→21:55)
[2019-01-29] MEDS: GUAIFENESIN SYRP 200 MG/10 ML UDC PO PRN ×2 (05:45→21:57)
[2019-01-29] MEDS: LEVOTHYROXINE SODIUM 0.15 MG TABLET PO SCH (07:46)
[2019-01-29] MEDS: DIPHENOXYLATE HCL/ATROP SULF 2.5-0.025 MG TABLET PO SCH (07:46)
[2019-01-29] MEDS ORDERED: LEVOTHYROXINE SODIUM 0.025 MG TABLET PO SCH (08:00)
[2019-01-29] MEDS ORDERED: (PENDING PHARMACY ID) (Cetirizine Hcl [Zyrtec] 10 MG) PO SCH (08:00)
[2019-01-29] MEDS: LORATADINE 10 MG TABLET PO SCH (09:31)
[2019-01-29] MEDS: GUAIFENESIN 600 MG TABLET.SA PO SCH ×2 (09:31→21:55)
[2019-01-29] MEDS: AZITHROMYCIN 250 MG TABLET PO SCH (09:31)
[2019-01-29] MEDS: CEFTRIAXONE 1 GM/D5W RTU 1 GM/50 ML RTUPB IV SCH (09:34)
--- NOTE | 2019-01-29 17:18 | PDOC PROGRESS REPORT ---
Subjective Progress Note for:: 01/29/19 Subjective:: No adverse events overnight. No new complaints. She still got cough and is having trouble clearing the secretions. She is been afebrile. Reason For Visit: COMMUNITY ACQUIRED PNEUMONIA,HYPOXIA Physical Exam Vital Signs: Temp Pulse Resp BP Pulse Ox 98.3 F 76 19 112/72 94 01/29/19 13:00 01/29/19 14:00 01/29/19 13:00 01/29/19 13:00 01/29/19 13:00 Intake & Output 01/28/19 01/29/19 01/30/19 06:59 06:59 06:59 Intake Total 310 487 Balance 310 487 Weight 88.4 kg General appearance: PRESENT: no acute distress, cooperative, disheveled, obese Respiratory exam: PRESENT: symmetrical, unlabored, other - Coarse breath sounds. ABSENT: accessory muscle use, chest wall tenderness, crackles, prolonged expiratory phas, rhonchi, tachypnea, wheezes Cardiovascular exam: PRESENT: RRR, +S1, +S2 Pulses: PRESENT: normal carotid pulses Vascular exam: PRESENT: normal capillary refill GI/Abdominal exam: PRESENT: normal bowel sounds, soft. ABSENT: distended, guarding, rebound, tenderness Extremities exam: ABSENT: clubbing, pedal edema Musculoskeletal exam: PRESENT: normal inspection. ABSENT: deformity Neurological exam: PRESENT: alert, awake, oriented to person, oriented to place, oriented to situation Psychiatric exam: PRESENT: flat affect Skin exam: PRESENT: dry, warm Results Laboratory Results: 01/29/19 04:33 01/29/19 04:33 01/28/19 01/29/19 01/29/19 16:49 04:33 04:33 WBC 8.8 RBC 4.80 Hgb 14.2 Hct 43.7 MCV 91 MCH 29.5 MCHC 32.4 RDW 14.5 H Plt Count 194 Sodium 141.7 Potassium 4.3 Chloride 100 Carbon Dioxide 35 H Anion Gap 7 BUN 8 Creatinine 0.45 L Est GFR ( Amer) > 60 Glucose 138 H Lactic Acid 1.2 Calcium 10.1 Impressions: Chest X-Ray 01/28/19 13:50 IMPRESSION: Low lung volumes with bibasilar opacities. Assessment and Plan - Diagnosis (1) Community acquired pneumonia Qualifiers: Laterality: unspecified laterality Qualified Code(s): J18.9 - Pneumonia, unspecified organism Is this a current diagnosis for this admission?: Yes Plan: We will continue with her current antibiotics. Cultures are negative thus far. (2) Hypoxia Is this a current diagnosis for this admission?: Yes Plan: Continue supplemental O2. Aggressive pulmonary toilet. Have ordered chest PT and flutter valve (3) History of muscular dystrophy Is this a current diagnosis for this admission?: Yes Plan: We will make sure that she gets a pneumonia vaccine prior to discharge. Also recommended that when she is over this, she should get a flu shot. We will try to arrange for her to have follow-up with a plant protection officer as an outpatient. - Time Time Spent with patient: 15-24 minutes
--- NOTE | 2019-01-30 00:50 | EKG REPORT ---
SEVERITY:- ABNORMAL ECG - SINUS RHYTHM LEFT VENTRICULAR HYPERTROPHY PROLONGED QT INTERVAL : Confirmed by: Michelle Combs 30-Jan-2019 00:49:58
[2019-01-30 05:31] LABS: HEMATOCRIT 42.9 % (36.0-47.0); HEMOGLOBIN 13.9 g/dL (12.0-15.5); MEAN CORPUSCULAR HEMOGLOBIN 29.2 pg (27.0-33.4); MEAN CORPUSCULAR HGB CONC 32.4 g/dL (32.0-36.0); MEAN CORPUSCULAR VOLUME 90 fl (80-97); PLATELET COUNT 181 10^3/uL (150-450); RED BLOOD COUNT 4.75 10^6/uL (3.72-5.28); RED CELL DISTRIBUTION WIDTH 14.4 % (11.5-14.0); WHITE BLOOD COUNT 7.4 10^3/uL (4.0-10.5)
[2019-01-30 05:44] LABS: BLOOD UREA NITROGEN 9 mg/dL (7-20); CHLORIDE 99 mmol/L (98-107); GLUCOSE 125 mg/dL (75-110); POTASSIUM 3.9 mmol/L (3.6-5.0)
[2019-01-30 05:50] LABS: ANION GAP 5 (5-19); CARBON DIOXIDE 39 mmol/L (22-30)
[2019-01-30] MEDS: HEPARIN SOD (PORCINE) 5,000 UNIT/ML 1 ML VIAL SUBCUT SCH ×2 (06:04→13:12)
[2019-01-30] MEDS: LEVOTHYROXINE SODIUM 0.15 MG TABLET PO SCH (08:07)
[2019-01-30] MEDS: DIPHENOXYLATE HCL/ATROP SULF 2.5-0.025 MG TABLET PO SCH (08:07)
[2019-01-30] MEDS ORDERED: PNEUMOCOCCAL 23-VAL P-SAC VAC 0.5 ML VIAL IM PRN (09:48)
[2019-01-30] MEDS: CEFTRIAXONE 1 GM/D5W RTU 1 GM/50 ML RTUPB IV SCH (09:51)
[2019-01-30] MEDS: AZITHROMYCIN 250 MG TABLET PO SCH (09:51)
[2019-01-30] MEDS: LORATADINE 10 MG TABLET PO SCH (09:51)
[2019-01-30] MEDS: GUAIFENESIN 600 MG TABLET.SA PO SCH (09:51)
[2019-01-30] MEDS: GUAIFENESIN SYRP 200 MG/10 ML UDC PO PRN (13:16)
[2019-01-30 15:40] VITALS: BP 115/72
--- NOTE | 2019-01-30 18:29 | PDOC DISCHARGE SUMMARY ---
Impression - Admit/DC Date/PCP Admission Date/Primary Care Provider: 01/28/19 17:28 ANDREW ARRIAGA DO Discharge Date: 01/30/19 - Discharge Diagnosis (1) Community acquired pneumonia Is this a current diagnosis for this admission?: Yes (2) Hypoxia Is this a current diagnosis for this admission?: Yes (3) History of muscular dystrophy Is this a current diagnosis for this admission?: Yes - Additional Information Resuscitation Status: Full Code Discharge Diet: Regular Discharge Activity: Slowly Increase Activity Referrals: VICKEY HWANG MD [ACTIVE STAFF] - 02/27/19 10:00 am (PROVIDER'S OFFICE WILL SEND A NEW PATIENT PACKET. PLEASE COMPLETE AND BRING TO APPT.) ANDREW ARRIAGA DO [Primary Care Provider] - 02/06/19 11:00 am Prescriptions: Levofloxacin [Levaquin 750 mg Tablet] 750 mg PO DAILY #5 tablet Home Medications: Levothyroxine Sodium [Synthroid 0.025 mg Tablet] 150 mcg PO QAM 02/13/13 Cetirizine HCl [Zyrtec] 10 mg PO QAM 01/28/19 Cholecalciferol (Vitamin D3) [Vitamin D3 2000 unit Tablet] 1 tab PO DAILY 01/28/19 Diphenoxylate HCl/Atrop Sulf [Lomotil 2.5 mg Tablet] 4 tab PO QAM 01/28/19 Vit Bcomp,C/Folic Acid/Zinc [Destiny B Strong with C & Zinc Tb] 1 tab PO DAILY 01/28/19 Guaifenesin [Mucinex Sr 600 mg Tablet.sa] 600 mg PO Q12 tablet.sa 01/30/19 Levofloxacin [Levaquin 750 mg Tablet] 750 mg PO DAILY #5 tablet 01/30/19 History of Present Illiness History of Present Illness: JESUS GEORGE is a 53 year old female with a history of muscular dystrophy and thyroid cancer status post thyroidectomy on chronic hormone replacement who presented to an urgent care center with a one-week history of cough. She denies fever. The cough has been productive but her cough is not very strong. She denies shortness of breath. Apparently did a chest x-ray at the urgent care center and sent her over to the ER telling her they thought she had a pneumonia. The chest x-ray here shows possible bibasilar infiltrates. She was not visibly short of breath but at one point they checked her oxygen on room air and it was in the 80s. They put her on oxygen per nasal cannula. She says she was diagnos ed with muscular dystrophy 12 or 13 years ago but has never had a pneumonia vaccine nor has she ever seen a shipwright helper. We are admitting her because of her community-acquired pneumonia complicated by her perceived pulmonary weakness due to her muscular dystrophy. Hospital Course Hospital Course: Her cough is still fairly weak and she was having a hard time clearing her secretions but she was able to start clearing them after a couple of days of some Mucinex. She was breathing comfortably on room air. She said that she felt better overall. She was able to get up and walk without feeling too weak. We made sure that she got the 23 valent pneumococcal vaccine prior to discharge. We also recommended that she go ahead and get her flu vaccine as soon as possible. She will complete a course of Levaquin at home. We have also arrange follow-up with a shipwright helper, because she despite being diagnosed with muscular dystrophy 12 or 13 years ago has never gotten a pneumonia vaccine nor seen a shipwright helper. Her labs and exam are reassuring and she was discharged in good condition. Physical Exam Vital Signs: Temp Pulse Resp BP Pulse Ox 98.5 F 64 20 115/72 99 01/30/19 14:50 01/30/19 14:50 01/30/19 14:50 01/30/19 14:50 01/30/19 14:50 Intake & Output 01/29/19 01/30/19 01/31/19 06:59 06:59 06:59 Intake Total 310 1201 590 Balance 310 1201 590 Weight 88.4 kg 87.4 kg General appearance: PRESENT: no acute distress, cooperative, disheveled, obese Respiratory exam: PRESENT: symmetrical, unlabored, other - Coarse breath sounds. ABSENT: accessory muscle use, chest wall tenderness, crackles, prolonged expiratory phas, rhonchi, tachypnea, wheezes Cardiovascular exam: PRESENT: RRR, +S1, +S2 Pulses: PRESENT: normal carotid pulses Vascular exam: PRESENT: normal capillary refill GI/Abdominal exam: PRESENT: normal bowel sounds, soft. ABSENT: distended, guarding, rebound, tenderness Extremities exam: ABSENT: clubbing, pedal edema Musculoskeletal exam: PRESENT: normal inspection. ABSENT: deformity Neurological exam: PRESENT: alert, awake, oriented to person, oriented to place, oriented to situation Psychiatric exam: PRESENT: flat affect Skin exam: PRESENT: dry, warm Results Laboratory Results: WBC 7.4 10^3/uL (4.0-10.5) 01/30/19 05:00 RBC 4.75 10^6/uL (3.72-5.28) 01/30/19 05:00 Hgb 13.9 g/dL (12.0-15.5) 01/30/19 05:00 Hct 42.9 % (36.0-47.0) 01/30/19 05:00 MCV 90 fl (80-97) 01/30/19 05:00 MCH 29.2 pg (27.0-33.4) 01/30/19 05:00 MCHC 32.4 g/dL (32.0-36.0) 01/30/19 05:00 RDW 14.4 % (11.5-14.0) H 01/30/19 05:00 Plt Count 181 10^3/uL (150-450) 01/30/19 05:00 Lymph % (Auto) 20.5 % (13-45) 01/28/19 14:50 Barnes % (Auto) 5.7 % (3-13) 01/28/19 14:50 Eos % (Auto) 3.0 % (0-6) 01/28/19 14:50 Baso % (Auto) 1.3 % (0-2) 01/28/19 14:50 Absolute Neuts (auto) 7.2 10^3/uL (1.7-8.2) 01/28/19 14:50 Absolute Lymphs (auto) 2.1 10^3/uL (0.5-4.7) 01/28/19 14:50 Absolute Monos (auto) 0.6 10^3/uL (0.1-1.4) 01/28/19 14:50 Absolute Eos (auto) 0.3 10^3/uL (0.0-0.6) 01/28/19 14:50 Absolute Basos (auto) 0.1 10^3/uL (0.0-0.2) 01/28/19 14:50 Seg Neutrophils % 69.5 % (42-78) 01/28/19 14:50 Sodium 143.1 mmol/L (137-145) 01/30/19 05:00 Potassium 3.9 mmol/L (3.6-5.0) 01/30/19 05:00 Chloride 99 mmol/L (98-107) 01/30/19 05:00 Carbon Dioxide 39 mmol/L (22-30) H 01/30/19 05:00 Anion Gap 5 (5-19) 01/30/19 05:00 BUN 9 mg/dL (7-20) 01/30/19 05:00 Creatinine 0.45 mg/dL (0.52-1.25) L 01/30/19 05:00 Est GFR ( Amer) > 60 (>60) 01/30/19 05:00 Est GFR (MDRD) Non-Af > 60 (>60) 01/30/19 05:00 Glucose 125 mg/dL (75-110) H 01/30/19 05:00 Lactic Acid 1.2 mmol/L (0.7-2.1) 01/28/19 16:49 Calcium 10.0 mg/dL (8.4-10.2) 01/30/19 05:00 Total Bilirubin 1.5 mg/dL (0.2-1.3) H 01/28/19 14:50 Direct Bilirubin 0.3 mg/dL (0.0-0.4) 01/28/19 14:50 Neonat Total Bilirubin Not Reportable 01/28/19 14:50 Neonat Direct Bilirubin Not Reportable 01/28/19 14:50 Neonat Indirect Bili Not Reportable 01/28/19 14:50 AST 130 U/L (14-36) H 01/28/19 14:50 ALT 181 U/L (<35) 01/28/19 14:50 Alkaline Phosphatase 404 U/L (38-126) H 01/28/19 14:50 Total Protein 7.3 g/dL (6.3-8.2) 01/28/19 14:50 Albumin 4.3 g/dL (3.5-5.0) 01/28/19 14:50 Lipase 27.9 U/L (23-300) 01/28/19 14:50 Urine Color YELLOW 01/28/19 14:50 Urine Appearance SLIGHTLY-CLOUDY 01/28/19 14:50 Urine pH 5.0 (5.0-9.0) 01/28/19 14:50 Ur Specific [place] 1.008 01/28/19 14:50 Urine Protein NEGATIVE mg/dL (NEGATIVE) 01/28/19 14:50 Urine Glucose (UA) NEGATIVE mg/dL (NEGATIVE) 01/28/19 14:50 Urine Ketones NEGATIVE mg/dL (NEGATIVE) 01/28/19 14:50 Urine Blood NEGATIVE (NEGATIVE) 01/28/19 14:50 Urine Nitrite NEGATIVE (NEGATIVE) 01/28/19 14:50 Urine Bilirubin NEGATIVE (NEGATIVE) 01/28/19 14:50 Urine Urobilinogen NEGATIVE mg/dL (<2.0) 01/28/19 14:50 Ur Leukocyte Esterase NEGATIVE (NEGATIVE) 01/28/19 14:50 Urine WBC (Auto) 1 /HPF 01/28/19 14:50 Urine RBC (Auto) 0 /HPF 01/28/19 14:50 Squamous Epi Cells Auto 1 /HPF 01/28/19 14:50 Urine Mucus (Auto) RARE /LPF 01/28/19 14:50 Urine Ascorbic Acid 40 (NEGATIVE) H 01/28/19 14:50 Impressions: Chest X-Ray 01/28/19 13:50 IMPRESSION: Low lung volumes with bibasilar opacities. Plan Time Spent: Greater than 30 Minutes Stroke Is this a Stroke Patient?: No Acute Heart Failure - Is this a Heart Failure Patient?: No
[2019-01-30] MEDS ORDERED: GUAIFENESIN 600 MG TABLET.SA PO SCH (22:00)
== END 2019-01-30 16:54 | disposition home or self-care (01) | DRG 195 ==
LOC: ER 13:16 → EH 17:28 → 5 19:43
PROVIDERS: ADMIT Family Medicine; ATTEND Family Medicine
DX: J18.9 Pneumonia, unspecified organism (principal); I10 Essential (primary) hypertension; G71.00 Muscular dystrophy, unspecified; E89.0 Postprocedural hypothyroidism; Z85.841 Personal history of malignant neoplasm of brain; Z79.890 Hormone replacement therapy; Z85.850 Personal history of malignant neoplasm of thyroid; Z88.2 Allergy status to sulfonamides
CPT/HCPCS: 36415; 71046; 80048; 80053; 81001; 83605; 83690; 85025; 85027; 87040; 93005; 93010; 94640; 94667; 96365; 96367; 96375; 99284; J0456; J0696; J1644; J2405; J3490; J7620

== ENCOUNTER → 2019-02-07 | Outpatient (CLI) | payer BC, MEDICARE ==
--- NOTE | 2019-02-07 14:23 | RADIOLOGY REPORT (SQ) ---
EXAM DESCRIPTION: CHEST PA/LATERAL COMPLETED DATE/TIME: 02/07/2019 1:50 pm REASON FOR STUDY: PNEUMONIA, UNSPECIFIED ORGANISM COMPARISON: 01/28/2019 EXAM PARAMETERS: NUMBER OF VIEWS: two views TECHNIQUE: Digital Frontal and Lateral radiographic views of the chest acquired. RADIATION DOSE: NA LIMITATIONS: none FINDINGS: LUNGS AND PLEURA: No opacities, masses or pneumothorax. No pleural effusion. MEDIASTINUM AND HILAR STRUCTURES: No masses or contour abnormalities. HEART AND VASCULAR STRUCTURES: Cardiomegaly. No ignacia pulmonary edema. BONES: No acute findings. HARDWARE: None in the chest. OTHER: No other significant finding. IMPRESSION: Cardiomegaly without pulmonary edema. No focal infiltrate. TECHNICAL DOCUMENTATION: JOB ID: [id number] [employer]- All Rights Reserved Reading location - IP/workstation name: [email or web address]
== END ==
LOC: OD 13:24
PROVIDERS: ATTEND Family Medicine
DX: J18.9 Pneumonia, unspecified organism (principal); I51.7 Cardiomegaly
CPT/HCPCS: 71046